=== PATIENT | female | born 1940 ===

== ENCOUNTER 2018-06-21 05:55 | Day surgery (SDC) | payer MEDICARE, MEDICAID ==
[2018-06-17 11:42] VITALS: BMI 29.6
[2018-06-21 06:56] VITALS: RESP 18
[2018-06-21] MEDS ORDERED: Lactated Ringer's 1,000 ML IV ONE (07:06)
--- NOTE | 2018-06-21 07:31 | CP.SDSHP ---
Same Day Surgery H & P - History Proposed Procedure: hysteroscopy possible polypectomy/D-C Pre-Op Diagnosis: post menopausal bleeding; thickened endometrium by sono - Previous Medical/Surgical History Cardiac: Hypertension Previous Surgical History: C/S 1983;cholecystectomy 2015; catarrcts 2013 - Allergies Allergies: Allergies iodine Allergy (Verified 06/21/18 07:12) RASH - Current Medications Current Medications: metoprolol;Esomeprazole - Physical Exam General Appearance: awake alert w/o x3 Vital Signs: Vital Signs 06/21/18 06:50 Temperature 98.6 F Pulse Rate 86 Respiratory 18 Rate Blood Pressure 211/84 H O2 Sat by Pulse 98 Oximetry Mental Status: Alert & Oriented x3 Heart: WNL Lungs: WNL GI: WNL - {Optional Preform as Required} Breast: WNL Abdomen: WNL Integument: WNL MOTHER BABY RN: Other : WNL - Impression Impression: postmenopausal bleeding; thick endometrium by sono - Date & Time Date: 06/21/18 Time: 07:40 Short Stay Discharge - Short Stay Discharge Admitting Diagnosis/Reason for Visit: Z12.4/ N84.1/ Disposition: HOME/ ROUTINE
[2018-06-21] MEDS ORDERED: Propofol 10 mg/ml Inj (20 ML) ONE (07:53)
[2018-06-21] MEDS ORDERED: Etomidate 20 mg/10ml Inj IV ONE (07:53)
[2018-06-21] MEDS ORDERED: Midazolam 2 MG/2 ML VIAL ONE (07:53)
[2018-06-21] MEDS ORDERED: cefOXitin IV 1 gm in Dextrose 1 GM/50 ML BAG IVPB ONE (08:23)
[2018-06-21] MEDS ORDERED: Lactated Ringer's 1,000 ML IV SCH (09:15)
[2018-06-21] MEDS ORDERED: Oxycodone/Acetaminophen 5/325 mg Tab PO ONE (09:15)
[2018-06-21 10:42] VITALS: O2SAT 99
[2018-06-21 10:43] VITALS: BP 207/86; PULSE 59
[2018-06-21 10:46] VITALS: TEMP 97.8
--- NOTE | 2018-06-25 07:38 | OP ---
PROCEDURE DATE: 06/21/2018 PREOPERATIVE DIAGNOSES: 1. Postmenopausal bleeding. 2. Endometrial polyp and thickened endometrium by ultrasound. POSTOPERATIVE DIAGNOSES: 1. Postmenopausal bleeding. 2. Large endocervical polyp. 3. endometrial polyps. PROCEDURES PERFORMED: 1. Hysteroscopy with endometrial polypectomy. 2. Endocervical polypectomy. 3. Fractional dilatation and curettage. SURGEON: Torey Mckinney MD ANESTHESIA USED: General. ANESTHESIA ADMINISTERED BY: Raman Horton MD ESTIMATED BLOOD LOSS: 50 to 75 mL. DRAINS USED: None. REPLACEMENTS USED: None. FINDINGS: 1. Large 2 x 6 cm endometrial polyp. 2. Endometrial polyps by hysteroscopy. 3. MyoSure technique performed under direct visualization for endometrial polyp. Fractional dilatation and curettage done. 4. Fractional Dilatation and curettage. DESCRIPTION OF PROCEDURE: The patient was taken to the operating room and placed on the operating room table in a supine position. Following induction of general anesthesia, the patient was then replaced in a dorsal lithotomy position. Perineum and genital areas were draped and prepped in the usual sterile manner. At this time, a sterile catheter was then placed into the bladder and clear fluid was then evacuated from the bladder. The patient was then examined under anesthesia with some of the above findings. Heavy weighted speculum was then placed in the posterior wall of the vagina exposing the cervix. The anterior lip of the cervix was then grasped, using a single-tooth tenaculum and retracted superiorly. At this time, endocervical polyp was noted to be present and it was grasped using a polyp forceps and removed under direct visualization. Specimen sent to pathology. At this time, the endocervical canal was then curetted using a GalePepe curette. Minimal amount of tissue obtained and sent to pathology. The endocervical canal was then dilated using Jt dilators in an increasing size manner. The endometrial cavity was then sounded and sounded to 8 cm. At this time, we then proceeded to place a hysteroscope on the endocervical canal and under direct visualization, it was advanced into the endometrial cavity. Once we reached the endometrial cavity, endometrial polyps were noted to be present. Using MyoSure technique, polypectomy was then performed under direct visualization. Following this, we then proceeded to remove the hysteroscope under direct visualization and curettage was then gingerly done. Minimal amount of tissue obtained and sent to pathology for proper pathological evaluation. At this time, single-toothed tenaculum was then removed. No bleeding noted from the tenaculum site. The patient tolerated the procedure well. There were no complications. She was transferred to the recovery room in satisfactory condition. Torey Mckinney MD MTDD
== END 2018-06-21 13:33 | disposition home or self-care (01) ==
LOC: H.OPSURG 05:55
PROVIDERS: ATTEND Specialist
DX: N84.1 Polyp of cervix uteri (principal); N84.0 Polyp of corpus uteri; I10 Essential (primary) hypertension; F32.9 Major depressive disorder, single episode, unspecified; N95.0 Postmenopausal bleeding; Z90.49 Acquired absence of other specified parts of digestive tract; Z79.899 Other long term (current) drug therapy
CPT/HCPCS: 58558; 88305; J0694; J2001; J2250; J2405; J2704; J3010; J7030; J7120